=== PATIENT | female | born 1955 | race Caucasian/White ===

== ENCOUNTER 2023-04-05 13:15 | Emergency (ER) | payer MEDICARE ==
[~2023-04-05] VITALS: Ht 162.5 cm; Wt 63.5 kg
[2023-04-05 14:11] LABS: BASO % 0.5 % (0.0-1.0); EOS # 0.1 10*3/uL (0.0-0.4); EOS % 1.5 % (1.0-4.0); HEMATOCRIT 39.7 % (37.0-47.0); LYMPH # 2.4 10*3/uL (1.3-4.4); LYMPH % 28.4 % (27.0-41.0); MEAN CELL VOLUME 82.5 fl (81.0-99.0); MEAN CORPUSCULAR HGB 27.7 pg (27.0-31.0); MEAN CORPUSCULAR HGB CONC 33.5 g/dl (33.0-37.0); MEAN PLATELET VOLUME 10.3 fl (9.6-12.3); MONO # 0.6 10*3/uL (0.1-1.0); MONO % 7.3 % (3.0-9.0); NEUT # 5.2 10*3/uL (2.3-7.9); NEUT % 62.1 % (47.0-73.0); PLATELET COUNT AUTOMATED 214 10*3/uL (130-400); RED BLOOD COUNT 4.81 10*6/uL (4.10-5.10); RED CELL DISTRI WIDTH 12.4 % (0-14.5); WHITE BLOOD COUNT 8.5 10*3/uL (4.8-10.8)
[2023-04-05 14:33] LABS: ALKALINE PHOSPHATASE 61 U/L (46-116); BUN 12 mg/dl (9-23); CHLORIDE 110 mmol/L (98-107); LIPASE 40 U/L (12-53); SGPT/ALT 12 U/L (10-49); TOTAL PROTEIN 6.2 gm/dL (6.0-8.0)
[2023-04-05 14:47] LABS: BILIRUBIN Negative (Negative); BLOOD 3+ (Negative); CLARITY Cloudy (Clear); COLOR Yellow (Yellow); GLUCOSE Negative (Negative); KETONE Negative (Negative); LEUKO ESTERASE 2+ (Negative); NITRITE Positive (Negative); PH 6.5 (4.5-8.0); UROBILINOGEN 0.2 E.U./dl (0.0-1.0)
[2023-04-05 14:55] LABS: BACTERIA 3+; CALCIUM OXALATE CRYSTALS 1+; EPITHELIAL CELLS 0-2; RBC TNTC rbc/hpf (0-2)
[2023-04-05 14:56] LABS: WBC 21-30 wbc/hpf (0-5)
[2023-04-05] MEDS ORDERED: FLOMAX0.4 MG PO (16:29)
[2023-04-05] MEDS ORDERED: CIPRO500 MG PO (16:29)
[2023-04-05] MEDS ORDERED: MELOXICAM7.5 MG PO (16:29)
== END 2023-04-05 17:49 | disposition home or self-care (01) ==
LOC: ED 13:15
PROVIDERS: Nurse Practitioner
DX: N39.0 Urinary tract infection, site not specified (principal); K80.20 Calculus of gallbladder without cholecystitis without obstruction; N20.1 Calculus of ureter; Z90.710 Acquired absence of both cervix and uterus; Z88.4 Allergy status to anesthetic agent